=== PATIENT | male | born 1970 | race African-American/Black ===

== ENCOUNTER 2016-12-28 21:04 | Emergency (ER) | payer SELFPAY ==
[~2016-12-28] VITALS: Ht 177.8 cm; Wt 81.6 kg
--- NOTE | 2016-12-28 21:13 | Emergency Room Report ---
History of Present Illness General Chief Complaint: Chest Pain Source: Patient Present Illness HPI This is a 46-year-old male presented after increased chest pain the patient reports having acute onset of pain which did not radiate. Pain was located on the left-sided chest. This is worse with movement. Allergies: Coded Allergies: No Known Allergies (Unverified , 12/28/16) Patient History Past Medical History: see triage record Reviewed Nursing Documentation: PMH: Agreed, PSxH: Agreed Nursing Documentation-PMH Past Medical History: No Stated History Review of Systems All Other Systems: negative except mentioned in HPI Physical Exam Vital Signs Date Time Temp Pulse Resp B/P Pulse Ox O2 Delivery O2 Flow Rate FiO2 12/28/16 21:03 98.1 102 18 130/78 98 Room Air Sp02 EP Interpretation: reviewed, normal General Appearance: normal inspection, well appearing, no apparent distress, alert, GCS 15 Head: atraumatic ENT: normal ENT inspection, hearing grossly normal, normal voice Neck: normal inspection, full range of motion, supple, no bony tend Respiratory: normal inspection, lungs clear, normal breath sounds, no respiratory distress, no retraction, no wheezing Cardiovascular #1: regular rate, rhythm, no edema Gastrointestinal: normal inspection, normal bowel sounds, non tender, soft, no guarding, no hernia Genitourinary: no CVA tenderness Musculoskeletal: normal inspection, back normal, normal range of motion Neurologic: normal inspection, alert, responsive, speech normal Psychiatric: normal inspection, judgement/insight normal, mood/affect normal Skin: normal inspection, normal color, no rash Medical Decision Making Diagnostic Impression: Primary Impression: Nonspecific chest pain ER Course Patient presented for chest pain.Differential diagnosis included but was not limited to acute coronary syndrome, pulmonary embolism, pneumonia, aortic dissection, shingles, pneumothorax, aortic dissection, esophageal rupture, pericarditis. Because of complexity of patient's case laboratory testing and imaging studies were ordered.Chest Xray interpreted by me 1 view showed no evident infiltrate, normal mediastinum, and normal cardiac size.EKG interpreted by me showed normal sinus rhythm without acute ST or T wave changes. The patient's pain appears to be chest wall related. Patient does not have any risk factors for pulmonary embolism and has a negative Homans sign. The patient is advised to follow up with primary care doctor in 1-2 days. Patient is advised to return if any worsening condition or if any changes in status that are concerning.Patient is advised that he would likely need outpatient stress testing. EKG Diagnostic Results Rate: normal Rhythm: NSR ST Segments: no acute changes ASA given to the pt in ED: No Rhythm Strip Diag. Results EP Interpretation: yes Rhythm: NSR, no PVC's, no ectopy Chest X-Ray Diagnostic Results Chest X-Ray Diagnostic Results : Chest X-Ray Ordered: Yes # of Views/Limited/Complete: 1 View Indication: Chest Pain EP Interpretation: Yes Interpretation: no consolidation, no effusion, no pneumothorax, no acute cardiopulmonary disease Impression: No acute disease Interpreting ER Provider: Electronically signed by Dr. Adolph Valadez M.D. Last Vital Signs Date Time Temp Pulse Resp B/P Pulse Ox O2 Delivery O2 Flow Rate FiO2 12/28/16 21:03 98.1 102 18 130/78 98 Room Air Status: improved Disposition: HOME, SELF-CARE Condition: Stable Scripts Omeprazole (OMEPRAZOLE) 10 Mg Capsule. 10 MG ORAL DAILY, #30 CAP 0 Refills Prov: Adolph Valadez 12/28/16 Adolph Valadez Dec 28, 2016 21:13
[2016-12-28 21:25] VITALS: BP 123/58
[2016-12-28] MEDS ORDERED: OMEPRAZOLE10 M1 ORAL (22:36)
[2016-12-28 22:40] VITALS: BP 117/67
--- NOTE | 2016-12-29 16:58 | Cardiology Report ---
APPROVED REPORT EKG Measurement Heart [id number] Normal sinus rhythm Normal ECG
--- NOTE | 2016-12-30 08:18 | Diagnostic Imaging Report ---
Indication: And Technique: XRAY CHEST 1 V Comparison: None Findings: The cardiomediastinal silhouette is within normal limits. There is no consolidation or pleural effusion. Generative changes of the spine are seen. Impression: No acute cardiopulmonary disease. Followup recommended as indicated.
== END 2016-12-28 22:40 | disposition home or self-care (01) ==
LOC: EDBD 21:04 → EMR 21:05
DX: R07.9 Chest pain, unspecified (principal)
CPT/HCPCS: 71010; 93005; 99283